=== PATIENT | female | born 1985 | race Two or more races ===

== ENCOUNTER 2020-03-19 08:00 | Outpatient (CLI) | payer BC ==
[~2020-03-19] VITALS: Ht 154.9 cm; Wt 72.7 kg
[~2020-03-19 08:00] MED LIST: None at this Time
== END 2020-03-19 23:59 | disposition home or self-care (01) ==
LOC: OUT 08:00 → EDSTATUS 03-22 16:00
PROVIDERS: ATTEND Obstetrics & Gynecology
DX: Z11.59 Encounter for screening for other viral diseases (principal)
CPT/HCPCS: 36415; 87635

== ENCOUNTER 2020-06-06 05:28 | Day surgery (SDC) | payer BC ==
[2020-06-04 15:31] LABS: HCG UR SG 1.023 (1.003-1.030)
[2020-06-04 15:40] LABS: ANION GAP 5 mmol/L (5-15); CHLORIDE 111 mmol/L (98-107); CREATININE 0.63 mg/dL (0.55-1.02)
[2020-06-04 15:48] LABS: BASOPHILS % (AUTO) 0 % (0-1); EOSINOPHILS % (AUTO) 1 % (1-7); LYMPHOCYTES % (AUTO) 16 % (22-44); MEAN CORPUSCULAR HEMOGLOBIN 24.3 pg (27.0-34.8); MEAN CORPUSCULAR HGB CONC 31.8 g/dL (32.4-35.8); MEAN PLATELET VOLUME 9.5 fL (7.4-10.4); MONOCYTES % (AUTO) 9 % (2-9); NEUTROPHILS % (AUTO) 74 % (42-75); PLATELET COUNT 301 x10^3/uL (130-400); RED BLOOD COUNT 4.13 x10^6/uL (3.82-5.3); RED CELL DISTRIBUTION WIDTH 15.8 % (9.6-15.2)
[2020-06-04 15:49] LABS: MD NO
[~2020-06-06] VITALS: Ht 154.9 cm; Wt 68.0 kg
[~2020-06-06 05:28] MED LIST changes: +HYDR-3237 PO
[2020-06-06 06:11] VITALS: BP 130/83
[2020-06-06] MEDS ORDERED: LIDOCAINE-MPF 1%, 2ML INFIL ONE (06:30)
[2020-06-06] MEDS ORDERED: LACTATED RINGERS 1,000 ML IV SCH (06:30)
[2020-06-06] MEDS ORDERED: CHLORHEXIDINE 15 ML UDC MM ONE (06:30)
[2020-06-06] MEDS ORDERED: FENTANYL PF 100 MCG/2ML ONE ×2 (06:38→07:12)
[2020-06-06] MEDS ORDERED: MIDAZOLAM 1 MG/ML, 2ML ONE (06:38)
[2020-06-06] MEDS ORDERED: BUPIVACAINE/PF 0.25% ONE (06:42)
[2020-06-06] MEDS ORDERED: EPINEPHRINE 1 MG/ML, 1ML ONE (06:43)
[2020-06-06] MEDS ORDERED: SILVER NITRATE STICK TP ONE (06:43)
[2020-06-06] MEDS ORDERED: HYDROmorphone 1 MG/ML, 1ML INJ IVPush PRN (07:00)
[2020-06-06] MEDS ORDERED: LABETALOL 5MG/ML, 20ML IV PRN (07:00)
[2020-06-06] MEDS ORDERED: MEPERIDINE/PF 25MG/0.5ML IVPush PRN (07:00)
[2020-06-06] MEDS ORDERED: hydrALAzine 20 MG/ML, 1ML IV PRN (07:00)
[2020-06-06] MEDS ORDERED: PROMETHAZINE 25 MG/ML, 1ML IVPush PRN (07:00)
[2020-06-06] MEDS ORDERED: ONDANSETRON 2MG/ML, 2ML IVPush PRN (07:00)
[2020-06-06] MEDS ORDERED: ACETAMINOPHEN 325 MG TABLET PO PRN (07:00)
[2020-06-06] MEDS ORDERED: FENTANYL PF 100 MCG/2ML IV PRN (07:00)
[2020-06-06] MEDS ORDERED: OXYcodone 5 MG/5 ML ORAL.SOL UDC PO PRN (07:00)
[2020-06-06] MEDS ORDERED: EPHEDRINE 50 MG/ML, 1ML IVPush PRN (07:00)
[2020-06-06] MEDS ORDERED: KETOROLAC 30 MG/1 ML ONE (07:09)
[2020-06-06] MEDS ORDERED: PROPOFOL 10 MG/ML, 20ML ONE (07:10)
[2020-06-06] MEDS ORDERED: DEXAMETHASONE 4 MG/ML, 1ML ONE (07:10)
[2020-06-06] MEDS ORDERED: ONDANSETRON 2MG/ML, 2ML ONE (07:10)
[2020-06-06] MEDS ORDERED: VASOPRESSIN 20 UNIT/ML, 1ML ONE ×2 (07:14→07:16)
[2020-06-06] MEDS ORDERED: SODIUM CHLORIDE 0.9% 100 ML ONE (07:16)
[2020-06-06] MEDS ORDERED: EPHEDRINE 50 MG/ML, 1ML ONE (07:47)
[2020-06-06] MEDS ORDERED: ACETAMINOPHEN 650 MG/20.3 ML UDC ONE (08:26)
== END 2020-06-06 09:15 | disposition home or self-care (01) ==
LOC: OUT 05:28
PROVIDERS: ATTEND Obstetrics & Gynecology
DX: N92.0 Excessive and frequent menstruation with regular cycle (principal); Z20.828 Contact with and (suspected) exposure to other viral communicable diseases; D25.0 Submucous leiomyoma of uterus; Z86.19 Personal history of other infectious and parasitic diseases; Z98.890 Other specified postprocedural states
CPT/HCPCS: 36415; 58561; 80048; 81025; 85025; 87635; 88305; J1100; J1885; J2250; J2405; J2704; J3010; J7120; J0171

== ENCOUNTER 2020-09-14 09:29 | Outpatient (CLI) | payer BC ==
[2020-09-14 10:40] LABS: BASOPHILS % (AUTO) 1 % (0-1); EOSINOPHILS % (AUTO) 2 % (1-7); LYMPHOCYTES % (AUTO) 31 % (22-44); MEAN CORPUSCULAR HEMOGLOBIN 28.7 pg (27.0-34.8); MEAN CORPUSCULAR HGB CONC 32.4 g/dL (32.4-35.8); MEAN PLATELET VOLUME 8.3 fL (7.4-10.4); MONOCYTES % (AUTO) 7 % (2-9); NEUTROPHILS % (AUTO) 60 % (42-75); PLATELET COUNT 421 x10^3/uL (130-400); RED BLOOD COUNT 4.17 x10^6/uL (3.82-5.3); RED CELL DISTRIBUTION WIDTH 28.3 % (9.6-15.2)
[2020-09-14 10:49] LABS: ANION GAP 8 mmol/L (5-15); CHLORIDE 109 mmol/L (98-107); CREATININE 0.65 mg/dL (0.55-1.02)
[2020-09-14] MEDS ORDERED: NORE5TAB PO (10:56)
[2020-09-14] MEDS ORDERED: ACET-1600 PO (10:56)
[2020-09-14] MEDS ORDERED: IRON18TA PO (10:56)
[2020-09-14] MEDS ORDERED: MULT-449 PO (10:56)
[2020-09-14 10:57] LABS: MD SCAN
== END 2020-09-14 23:59 | disposition home or self-care (01) ==
LOC: STAR 09:29
PROVIDERS: ATTEND Obstetrics & Gynecology
DX: Z01.812 Encounter for preprocedural laboratory examination (principal); Z20.822 Contact with and (suspected) exposure to COVID-19; N92.0 Excessive and frequent menstruation with regular cycle; D25.0 Submucous leiomyoma of uterus
CPT/HCPCS: 80048; 84702; 85025; 87635

== ENCOUNTER 2020-09-19 10:59 | Day surgery (SDC) | payer BC ==
[~2020-09-19] VITALS: Ht 154.9 cm; Wt 73.4 kg
[~2020-09-19 10:59] MED LIST changes: +ACET-1600 PO; +IRON18TA PO; +MULT-449 PO; +NORE5TAB PO
[2020-09-19 11:40] VITALS: BP 134/79
[2020-09-19] MEDS ORDERED: MIDAZOLAM 1 MG/ML, 2ML ONE (11:56)
[2020-09-19] MEDS ORDERED: FENTANYL PF 250 MCG/5ML ONE (11:56)
[2020-09-19] MEDS ORDERED: CHLORHEXIDINE 15 ML UDC MM ONE (12:00)
[2020-09-19] MEDS ORDERED: LACTATED RINGERS 1,000 ML IV SCH (12:00)
[2020-09-19 12:01] LABS: HCG UR SG 1.025 (1.003-1.030)
[2020-09-19] MEDS ORDERED: VASOPRESSIN 20 UNIT/ML, 1ML ONE (12:30)
[2020-09-19] MEDS ORDERED: SILVER NITRATE STICK TP ONE (12:30)
[2020-09-19] MEDS ORDERED: KETOROLAC 30 MG/1 ML ONE (12:54)
[2020-09-19] MEDS ORDERED: DEXAMETHASONE 4 MG/ML, 1ML ONE (12:54)
[2020-09-19] MEDS ORDERED: SUCCINYLCHOLINE 20 MG/ML, 10ML ONE (12:54)
[2020-09-19] MEDS ORDERED: ONDANSETRON 2MG/ML, 2ML ONE (12:54)
[2020-09-19] MEDS ORDERED: ROCURONIUM 10MG/ML,5ML ONE (12:54)
[2020-09-19] MEDS ORDERED: PROPOFOL 10 MG/ML, 20ML ONE (13:11)
[2020-09-19] MEDS ORDERED: hydrALAzine 20 MG/ML, 1ML IV PRN (14:00)
[2020-09-19] MEDS ORDERED: ONDANSETRON 2MG/ML, 2ML IVPush PRN (14:00)
[2020-09-19] MEDS ORDERED: MEPERIDINE/PF 25MG/0.5ML IVPush PRN (14:00)
[2020-09-19] MEDS ORDERED: DIPHENHYDRAMINE 50 MG/ML, 1ML IVPush PRN ×2 (14:00)
[2020-09-19] MEDS ORDERED: ALBUTEROL SULFATE 2.5 MG/3 ML NPPB PRN (14:00)
[2020-09-19] MEDS ORDERED: LABETALOL 5MG/ML, 20ML IV PRN (14:00)
[2020-09-19] MEDS ORDERED: MIDAZOLAM 1 MG/ML, 2ML IV PRN (14:00)
[2020-09-19] MEDS ORDERED: PROMETHAZINE 25 MG/ML, 1ML IVPush PRN (14:00)
[2020-09-19] MEDS ORDERED: PROMETHAZINE 12.5 MG SUPP PR PRN (14:00)
[2020-09-19] MEDS ORDERED: DIAZEPAM 5 MG/ML, 2ML IVPush PRN (14:00)
[2020-09-19] MEDS ORDERED: EPHEDRINE 50 MG/ML, 1ML IVPush PRN (14:00)
[2020-09-19] MEDS ORDERED: OXYcodone 5 MG/5 ML ORAL.SOL UDC PO PRN (14:00)
[2020-09-19] MEDS ORDERED: FENTANYL PF 100 MCG/2ML ONE ×3 (14:19→15:17)
[2020-09-19] MEDS ORDERED: HYDROmorphone 1 MG/ML, 1ML INJ ONE (14:52)
[2020-09-19] MEDS ORDERED: OXYcodone 5 MG/5 ML ORAL.SOL UDC ONE (14:52)
[2020-09-19] MEDS: FENTANYL PF 100 MCG/2ML IV PRN ×3 (14:55→15:20)
[2020-09-19] MEDS: HYDROmorphone 1 MG/ML, 1ML INJ IVPush PRN ×2 (15:00→15:05)
== END 2020-09-19 17:30 | disposition home or self-care (01) ==
LOC: OUT 10:59
PROVIDERS: ATTEND Obstetrics & Gynecology
DX: D25.0 Submucous leiomyoma of uterus (principal); N92.0 Excessive and frequent menstruation with regular cycle; D50.0 Iron deficiency anemia secondary to blood loss (chronic); Z79.891 Long term (current) use of opiate analgesic; Z79.899 Other long term (current) drug therapy; Z86.718 Personal history of other venous thrombosis and embolism; Z86.711 Personal history of pulmonary embolism
CPT/HCPCS: 58561; 81025; 88305; J0330; J1100; J1170; J1885; J2250; J2405; J2704; J3010; J7120

== ENCOUNTER 2020-10-02 17:39 | Emergency (ER) | payer BC ==
[~2020-10-02] VITALS: Ht 154.9 cm; Wt 74.3 kg
[2020-10-02] MEDS ORDERED: HYDR-3237 PO (18:38)
--- NOTE | 2020-10-02 18:56 | NUR ---
REPORT GIVEN TO MONSTER
--- NOTE | 2020-10-02 19:01 | NUR ---
bedside report from Rocío THORNTON, pt care transferred at this time. pt resting on gurney, nad, appears uncomfortable, states "my stomach is burning and in so much pain. provided pt warm blankets for comfort, bed in lowest, rails engaged, call light on lap, wctm.
[2020-10-02] MEDS ORDERED: HYDROmorphone 1 MG/ML, 1ML INJ ONE ×2 (19:41→20:43)
[2020-10-02] MEDS ORDERED: LORazepam 2 MG/ML, 1ML ONE (19:42)
[2020-10-02] MEDS: HYDROmorphone 1 MG/ML, 1ML INJ IVPush PRN ×2 (19:48→20:46)
--- NOTE | 2020-10-02 19:54 | NUR ---
PT RESTING ON GURNEY, APPEARS SIGNIFICANTLY MORE COMFORT, MEDICATED PER MAR, POST MEDICATIONS PT IS NO LONGER CRYING OUT IN PAIN. PT DENIES ADDITIONAL NEEDS AT THIS TIME. VS MONITORING IN PLACE, BED IN LOWEST, RAILS ENGAGED, CALL LIGHT ON LAP, WCTM. WAITING FOR US
[2020-10-02] MEDS ORDERED: SODIUM CHLORIDE FLUSH 10ML SYR IVF ONE (20:00)
[2020-10-02] MEDS ORDERED: SODIUM CHLORIDE 0.9% 1,000ML IVBOLUS ONE (20:00)
[2020-10-02] MEDS ORDERED: LORazepam 2 MG/ML, 1ML IVPush ONE (20:00)
[2020-10-02 20:26] LABS: ALBUMIN 3.5 g/dL (3.4-5.0); ANION GAP 9 mmol/L (5-15); CALCIUM 8.4 mg/dL (8.5-10.1); CHLORIDE 112 mmol/L (98-107); CREATININE 0.58 mg/dL (0.55-1.02)
[2020-10-02 20:27] LABS: BASOPHILS % (AUTO) 1 % (0-1); EOSINOPHILS % (AUTO) 1 % (1-7); LYMPHOCYTES % (AUTO) 14 % (22-44); MEAN CORPUSCULAR HEMOGLOBIN 30.1 pg (27.0-34.8); MEAN CORPUSCULAR HGB CONC 33.7 g/dL (32.4-35.8); MEAN PLATELET VOLUME 8.7 fL (7.4-10.4); MONOCYTES % (AUTO) 5 % (2-9); NEUTROPHILS % (AUTO) 80 % (42-75); PLATELET COUNT 341 x10^3/uL (130-400); RED BLOOD COUNT 3.75 x10^6/uL (3.82-5.3); RED CELL DISTRIBUTION WIDTH 15.9 % (9.6-15.2)
[2020-10-02 20:28] LABS: MICROSCOPIC AUTO
[2020-10-02 20:45] LABS: MD MORPH REVIEW ONLY
--- NOTE | 2020-10-02 20:50 | NUR ---
LATE ENTRY D/T PT CARE: PT RESTING ON GURNEY, STILL APPEARS UNCOMFORTABLE, REPORTS PAIN IS STILL ELEVATED. MEDICATED PER MAR, BED IN LOWEST, RAILS ENGAGED, CALL LIGHT ON LAP. WCTM
[2020-10-02 21:08] LABS: <PLATELET ESTIMATE> ADEQUATE; <PLT MORPHOLOGY> NORMAL PLT MORPH; ANISOCYTOSIS 1+; OVALOCYTES 1+
--- NOTE | 2020-10-02 21:46 | NUR ---
PT NAD, RESTING ON GURNEY, APPEARS COMFORTABLE, PROVIDED SMALL SIP OF WATER PER REQUST, BED IN LOWEST, RAILS ENGAGED, CALL LIGHT ON LAP, WAITING FOR US READ. WCTM
[2020-10-02] MEDS ORDERED: DOXYCYCLINE 100MG TABLET ONE (21:59)
[2020-10-02] MEDS ORDERED: DOXYCYCLINE 100MG TABLET PO ONE (22:00)
[2020-10-02 22:05] VITALS: BP 125/79
--- NOTE | 2020-10-02 22:12 | NUR ---
AGUSTINA SPARKS AT EXPLAINING POC. PT NAD, MEDICATED PER MAR, DENIES ADDITIONAL QUESTIONS OR NEEDS AT THIS TIME.BED IN [facility], RAILS ENGAGED, CALL LIGHT ON LAP, PT TO BE DC'D, WCTM.
--- NOTE | 2020-10-02 22:29 | NUR ---
Patient given discharge instructions and they have confirmed that they understand the instructions. Patient ambulatory with steady gait. nad, states she has a ride home from a friend and that she will follow up tomorrow. denies additional questions or needs, no personal belongings left in room after dc.
== END 2020-10-02 22:31 | disposition home or self-care (01) ==
LOC: ED 20:12
DX: D25.9 Leiomyoma of uterus, unspecified (principal); R10.2 Pelvic and perineal pain; N93.9 Abnormal uterine and vaginal bleeding, unspecified
CPT/HCPCS: 36415; 76830; 80048; 81001; 82040; 84702; 85025; 87040; 96374; 96375; 96376; 99284; J1170; J2060; J7030

== ENCOUNTER → 2020-12-05 | Outpatient (CLI) | payer BC ==
[2020-12-05 11:16] LABS: BASOPHILS % (AUTO) 1 % (0-1); EOSINOPHILS % (AUTO) 2 % (1-7); LYMPHOCYTES % (AUTO) 32 % (22-44); MEAN CORPUSCULAR HEMOGLOBIN 30.2 pg (27.0-34.8); MEAN CORPUSCULAR HGB CONC 34.1 g/dL (32.4-35.8); MEAN PLATELET VOLUME 9.1 fL (7.4-10.4); MONOCYTES % (AUTO) 8 % (2-9); NEUTROPHILS % (AUTO) 58 % (42-75); PLATELET COUNT 352 x10^3/uL (130-400); RED BLOOD COUNT 4.25 x10^6/uL (3.82-5.3); RED CELL DISTRIBUTION WIDTH 12.1 % (9.6-15.2)
[2020-12-05 11:20] LABS: MD NO
[2020-12-05 11:29] LABS: ALANINE AMINOTRANSFERASE 62 U/L (12-78); ALBUMIN 4.1 g/dL (3.4-5.0); ANION GAP 7 mmol/L (5-15); CALCIUM 9.2 mg/dL (8.5-10.1); CHLORIDE 109 mmol/L (98-107); CREATININE 0.55 mg/dL (0.55-1.02)
[2020-12-05 11:33] LABS: ALKALINE PHOSPHATASE 90 U/L (45-117); BILIRUBIN,TOTAL 0.2 mg/dL (0.2-1.0); TOTAL PROTEIN 7.8 g/dL (6.4-8.2)
== END | disposition home or self-care (01) ==
LOC: STAR 09:55
PROVIDERS: ATTEND Obstetrics & Gynecology
DX: Z01.818 Encounter for other preprocedural examination (principal); N92.0 Excessive and frequent menstruation with regular cycle; N94.6 Dysmenorrhea, unspecified; D25.0 Submucous leiomyoma of uterus; Z20.822 Contact with and (suspected) exposure to COVID-19
CPT/HCPCS: 36415; 80053; 84702; 85025; 93005; U0003

== ENCOUNTER 2020-12-11 10:58 | Observation (INO) | payer BC ==
[~2020-12-11] VITALS: Ht 154.9 cm; Wt 78.0 kg
[2020-12-11] MEDS ORDERED: LACTATED RINGERS 1,000 ML IV SCH (11:30)
[2020-12-11] MEDS ORDERED: CHLORHEXIDINE 15 ML UDC PO ONE (11:30)
[2020-12-11 11:32] LABS: HCG UR SG 1.021 (1.003-1.030)
[2020-12-11] MEDS ORDERED: SCOPOLAMINE 1MG PATCH TD ONE (12:37)
[2020-12-11] MEDS ORDERED: ACETAMINOPHEN 500 MG TABLET ONE (12:37)
[2020-12-11] MEDS ORDERED: DIAZEPAM 5 MG TABLET ONE (12:38)
[2020-12-11] MEDS ORDERED: MIDAZOLAM 1 MG/ML, 2ML ONE (12:50)
[2020-12-11] MEDS ORDERED: FENTANYL PF 250 MCG/5ML ONE (12:50)
[2020-12-11] MEDS ORDERED: PROPOFOL 10 MG/ML, 20ML ONE (12:51)
[2020-12-11] MEDS ORDERED: DEXAMETHASONE 4 MG/ML, 1ML ONE ×3 (12:53→13:23)
[2020-12-11] MEDS ORDERED: DIAZEPAM 5 MG TABLET PO ONE (13:00)
[2020-12-11] MEDS ORDERED: ACETAMINOPHEN 500 MG TABLET PO ONE (13:00)
[2020-12-11] MEDS ORDERED: SCOPOLAMINE 1MG PATCH TD SCH (13:00)
[2020-12-11] MEDS ORDERED: SUCCINYLCHOLINE 20 MG/ML, 10ML ONE (13:06)
[2020-12-11] MEDS ORDERED: ONDANSETRON 2MG/ML, 2ML ONE (13:06)
[2020-12-11] MEDS ORDERED: ROCURONIUM 10MG/ML,5ML ONE (13:23)
[2020-12-11] MEDS ORDERED: CEFAZOLIN 1,000 MG ONE ×2 (13:23)
[2020-12-11] MEDS ORDERED: BUPIVACAINE/PF 0.25% ONE ×2 (13:23)
[2020-12-11] MEDS ORDERED: EPHEDRINE 50 MG/ML, 1ML IVPush PRN (14:00)
[2020-12-11] MEDS ORDERED: ONDANSETRON 2MG/ML, 2ML IVPush PRN (14:00)
[2020-12-11] MEDS ORDERED: HYDROmorphone 1 MG/ML, 1ML INJ IVPush PRN (14:00)
[2020-12-11] MEDS ORDERED: LABETALOL 5MG/ML, 20ML IV PRN (14:00)
[2020-12-11] MEDS ORDERED: hydrALAzine 20 MG/ML, 1ML IV PRN (14:00)
[2020-12-11] MEDS ORDERED: MIDAZOLAM 1 MG/ML, 2ML IV PRN (14:00)
[2020-12-11] MEDS ORDERED: DIPHENHYDRAMINE 50 MG/ML, 1ML IVPush PRN ×2 (14:00)
[2020-12-11] MEDS ORDERED: ALBUTEROL SULFATE 2.5 MG/3 ML NPPB PRN (14:00)
[2020-12-11] MEDS ORDERED: MEPERIDINE/PF 25MG/0.5ML IVPush PRN (14:00)
[2020-12-11] MEDS ORDERED: PROMETHAZINE 25 MG/ML, 1ML IVPush PRN (14:00)
[2020-12-11] MEDS ORDERED: OXYcodone 5 MG/5 ML ORAL.SOL UDC PO PRN (14:00)
[2020-12-11] MEDS ORDERED: PROMETHAZINE 12.5 MG SUPP PR PRN (14:00)
[2020-12-11] MEDS ORDERED: DIAZEPAM 5 MG/ML, 2ML IVPush PRN (14:00)
[2020-12-11] MEDS ORDERED: FENTANYL PF 100 MCG/2ML ONE ×4 (14:06→15:16)
[2020-12-11] MEDS ORDERED: KETOROLAC 30 MG/1 ML ONE (14:21)
[2020-12-11] MEDS ORDERED: NEOSTIGMINE 1 MG/ML, 10ML ONE (14:23)
[2020-12-11] MEDS ORDERED: GLYCOPYRROLATE 0.2MG/1ML, 5ML ONE (14:23)
[2020-12-11] MEDS: FENTANYL PF 100 MCG/2ML IV PRN ×4 (14:59→15:26)
[2020-12-11] MEDS ORDERED: OXYcodone 5 MG/5 ML ORAL.SOL UDC ONE (15:16)
[2020-12-11] MEDS ORDERED: MEPERIDINE/PF 25MG/ML,1ML ONE (15:29)
[2020-12-11] MEDS ORDERED: HYDROmorphone 1 MG/ML, 1ML INJ ONE (15:45)
[2020-12-11] MEDS ORDERED: OXYcodone IR 5MG TABLET PO PRN (17:00)
[2020-12-11] MEDS ORDERED: IBUPROFEN 600 MG TABLET PO PRN (17:00)
[2020-12-11] MEDS ORDERED: IV KETOROLAC 30 MG/ML, 1ML IV SCH ×2 (18:00→20:00)
[2020-12-11 18:28] VITALS: BP 118/77
[2020-12-11] MEDS: IV KETOROLAC 30 MG/ML, 1ML IV SCH (19:40)
[2020-12-12 00:40] VITALS: BP 101/59
[2020-12-12 04:02] VITALS: BP 104/63
[2020-12-12] MEDS: IV KETOROLAC 30 MG/ML, 1ML IV SCH ×2 (04:06→11:42)
[2020-12-12 06:36] VITALS: BP 104/61
== END 2020-12-12 12:20 | disposition home or self-care (01) ==
LOC: OUT 10:58 → EDSTATUS 14:30 → 4NE 16:38 → OUT 20:54 → 4NE 20:55 → DCLOUNGE 12-12 12:12
PROVIDERS: ADMIT Obstetrics & Gynecology; ATTEND Obstetrics & Gynecology
DX: D25.0 Submucous leiomyoma of uterus (principal); N92.0 Excessive and frequent menstruation with regular cycle; G89.29 Other chronic pain; R10.2 Pelvic and perineal pain
CPT/HCPCS: 36415; 58140; 81025; 86850; 86900; 88305; 96374; 96376; G0378; J0330; J0690; J1100; J1170; J1885; J2175; J2250; J2405; J2704; J2710; J3010; J7120